=== PATIENT | female | born 1975 | race Two or more races ===

== ENCOUNTER → 2017-02-24 | Outpatient (CLI) | payer OTHER ==
[~2017-02-24] MED LIST: LEVO-T112 MCG PO
--- NOTE | ~2017-02-24 | US5 ---
[facility] A Service of [facility] RADIOLOGY TEXT RESULTS PATIENT: CATRACHITO KELLY LOCATION: [facility] : 79 UNIT #: [id number] AGE: [address]: Kala Pace MD SEX: F ORDER DR: [id number] [place] [id number] O MR#: [id number] Acc #: [id number] NAME: CATRACHITO KELLY : 1975 SEX: F STUDY DATE/TIME: 02/24/2017 8:20 UNIT: [facility] ROOM: STUDY DESCRIPTION: US Abdominal Complete Attending Physician: Kala Pace M.D. Referring Physician: Kala Pace M.D. Ordering Physician: Kala Pace M.D. Primary Care Physician: Nguyễn Haji M.D. MEDICAL IMAGING REPORT This report is preliminary unless electronic signature is present. EXAM Abdominal ultrasound INDICATIONS Right lower quadrant abdominal pain and right upper quadrant abdominal pain for the past 2 weeks. PROCEDURE Perez-scale and Doppler imaging of the abdomen COMPARISON None FINDINGS Visualized portions of the pancreas are unremarkable. The liver shows slightly increased echotexture compatible with the right kidney. Liver measures 16.3 cm. Gallbladder is filled with multiple stones. Family Law Attorney reports a negative sonographic Walters sign. There is no definite wall thickening or pericholecystic fluid. The right kidney measures 10.4 cm. Common duct measures 4 mm. Left kidney measures 11.3 cm. Spleen is not well seen measures approximately 10.8 cm. Submitted images abdominal aorta are unremarkable. IMPRESSION 1. No definite acute findings. 2. Gallbladder is completely filled with stones. No appreciable wall thickening and data software engineer reports negative sonographic Walters sign. If there is ongoing clinical suspicion for acute cholecystitis, HIDA scan may be helpful. 3. Slightly increased liver echotexture may be normal for the patient or reflect mild steatosis [facility] A Service of [facility] RADIOLOGY TEXT RESULTS PATIENT: CATRACHITO KELLY LOCATION: [facility] : 79 UNIT #: [id number] AGE: [address]: Kala Pace MD SEX: F ORDER DR: Dictated by... Osito Kaufman M.D. THIS IS AN ELECTRONICALLY VERIFIED REPORT Osito Kaufman M.D. at 02/25/2017 7:21 AM CRISTINO/ne TD: 02/24/2017 12:58 JOB #: [id number] MEDICAL IMAGING REPORT Page 1 of 1
== END | disposition home or self-care (01) ==
LOC: SRAD 08:23
DX: R10.31 Right lower quadrant pain (principal); K80.20 Calculus of gallbladder without cholecystitis without obstruction
CPT/HCPCS: 76700

== ENCOUNTER → 2017-03-18 | Outpatient (CLI) | payer OTHER ==
--- NOTE | ~2017-03-18 | EKG ---
PATIENT: CATRACHITO KELLY UNIT #: [id number] Ventricular Rate: 69 BPM Atrial Rate: 69 BPM P-R Interval: 154 ms QRS Duration: 80 ms Q-T Interval: 392 ms QTC Calculation(Bezet): 420 ms P [place]: 50 degrees Calculated R [place]: 52 degrees Calculated T [place]: 44 degrees Diagnosis Line: Normal sinus rhythm Diagnosis Line: Normal ECG Diagnosis Line: Diagnosis Line: Confirmed by ALONSO GAINES MD ([id number]) on 03/18/2017 Diagnosis Line: 6:09:13 PM INTERPRETING MD: LIANA DOMÍNGUEZ
[2017-03-18 11:12] LABS: BILIRUBIN,TOTAL 0.5 mg/dL (0.2-2.0); CREATININE SERUM 0.6 mg/dL (0.6-1.4); GLOM FILT RATE Estimated 114.8 mL/min (>60); POTASSIUM 4.4 mmol/L (3.5-5.1); PROTEIN TOTAL SERUM 7.5 g/dL (6.0-8.3)
== END | disposition home or self-care (01) ==
LOC: CAMB 09:48
PROVIDERS: Surgery
DX: Z01.818 Encounter for other preprocedural examination (principal); K80.20 Calculus of gallbladder without cholecystitis without obstruction
CPT/HCPCS: 36415; 80053; 93005

== ENCOUNTER → 2017-03-23 | Day surgery (SDC) | payer OTHER ==
--- NOTE | ~2017-03-23 | OR ---
Unit #: [id number] #: [id number] Patient: CATRACHITO KELLY [id number] [address] [place], [place] [address] [id number] O MR#: [id number] NAME: CATRACHITO KELLY ROOM: Date of Procedure: 03/23/2017 Admission Date: 03/23/2017 Surgeon: Antonino Pro Jr., M.D. : 1975 Attending Physician: Antonino Pro Jr., M.D. Primary Care Physician: Nguyễn Vicente OPERATIVE REPORT INDICATIONS FOR PROCEDURE The patient is a 41-year-old female, who recently presented to the office complaining of intermittent mid epigastric abdominal pain with nausea and vomiting. She has had workup, which revealed evidence of gallstones. It was felt she is having biliary colic. She is brought in this time for laparoscopic cholecystectomy at her request. PREOPERATIVE DIAGNOSES Chronic cholecystitis, cholelithiasis, and biliary colic. POSTOPERATIVE DIAGNOSES Chronic cholecystitis, cholelithiasis, and biliary colic, also noting multiple adhesions in the lower abdomen from previous section. ANESTHESIA General with endotracheal intubation. PROCEDURE PERFORMED Laparoscopic cholecystectomy. DESCRIPTION OF PROCEDURE The patient was positioned in supine position. After being anesthetized and intubated, she was prepped and draped in routine fashion for laparoscopic cholecystectomy. A small supraumbilical incision was made approximately a 1 cm in length. This was carried down through the subcutaneous tissue to the fascia. Fascia was lifted between 2 Roger clamps and a Veress needle introduced into the abdomen. The abdomen was then inflated with CO2 gas and a 5-mm port was introduced into the abdomen followed by the camera. There was no evidence of any injury related to introduction of the port of the Veress needle. Brief intra-abdominal exploration was carried out. The patient was noted to have multiple adhesions especially of the uterus to the anterior abdominal wall inferior from previous surgery. No evidence of any hernias. Two 5-mm ports were placed laterally and an 11-mm port just to the right of the upper midline. The gallbladder was then lifted and dissection was carried out in the triangle of Calot. Cystic duct and common duct were easy to visualize. The common duct appeared normal. Cystic duct was isolated only 1 to 2 mm in diameter, hemoclipped x4, and divided 1 cm from its junction with the common duct. Cystic artery was identified, hemoclipped x3, and divided. The gallbladder was then removed from its bed with the hook cautery using a current of 20 and after it was released, it was removed through the upper midline incision along the grasping clamp and the port. The port Unit #: [id number] #: [id number] Patient: CATRACHITO KELLY was replaced. Subhepatic space checked. There was no evidence of any bleeding from the gallbladder bed. The clips on cystic duct and cystic artery were intact with no evidence of any leak or bleeding. After all the areas were checked and no bleeding was noted, the ports were removed. The fascia in the larger port site was approximated with the neoClose prior to removal of the ports. The port sites were injected with 0.5% Marcaine with epinephrine and irrigated and after hemostasis achieved with Bovie cautery, skin edges were approximated with stainless-steel skin clips and skin stapling device. Sterile dressings were applied externally. Estimated blood loss less than 50 mL. The patient received less than 1000 mL crystalloid solution during the procedure. Sponges and instrument counts were correct x3. No drains used. No complications. The patient was taken to the recovery room with stable vital signs in satisfactory condition. Dictated by... Antonino Pro Jr. MWalker GAITAN/vilma TD: 03/23/2017 23:58 JOB #: [id number] OPERATIVE REPORT Page 1 of 1 X Antonino Pro MD X PROCEDURE OPERATIVE NOTE
== END | disposition home or self-care (01) ==
LOC: CSUR 08:58
DX: K80.10 Calculus of gallbladder with chronic cholecystitis without obstruction (principal); E78.00 Pure hypercholesterolemia, unspecified; E03.9 Hypothyroidism, unspecified; R73.9 Hyperglycemia, unspecified; Z79.899 Other long term (current) drug therapy; Z87.898 Personal history of other specified conditions
CPT/HCPCS: 84703; 88304; J0131; J0690; J1650; J2250; J3010